=== PATIENT | female | born 2000 ===

== ENCOUNTER 2019-01-06 05:47 | Emergency (ER) | payer OTHER ==
[2019-01-06] MEDS ORDERED: Ondansetron INJ* 2 MG/ML VIAL IV ONE (05:58)
[2019-01-06] MEDS ORDERED: Morphine 4 MG/ML VIAL (1 ml) 4 MG/ML VIAL IV ONE (05:58)
[2019-01-06] MEDS ORDERED: Ketorolac INJ* 30 MG/ML 1 ML VIAL IV PUSH ONE (06:01)
[2019-01-06] MEDS ORDERED: NS 0.9% 1000 ML** 2,000 ML IV ONE (06:05)
--- NOTE | 2019-01-06 06:06 | ED ---
GI/ HPI - HPI Summary HPI Summary: 18-year-old female presents with flank pain today. She states went to [facility] yesterday and was diagnosed with a stone on the right side that was 4 mm. Unsure of the location of the stone. She states that they sent her with pain medication and antibiotics and tool last dose of medication at 11pm last night. They also diagnosis her with a uti. Told to follow up today. She states that she fell asleep and then woke up nauseated and in extreme pain. She did not take anymore medication. She denies any fevers. She states she is currently nauseous. Denies any chest or shortness breath. Denies any diarrhea constipation. Has never had a kidney stone before. Has no medical conditions. CT shows 4mm stone distal ureter via reports from [facility]. - History of Current Complaint Chief Complaint: EDAbdPain Time Seen by Provider: 01/06/19 05:52 Stated Complaint: ABD PAIN PER EMS Pain Intensity: 10 - Allergy/Home Medications Allergies/Adverse Reactions: Allergies Allergy/AdvReac Type Severity Reaction Status Date / Time No Known Allergies Allergy Verified 01/06/19 05:57 Home Medications: Home Medications Pyridium 1 tab PO DAILY 01/06/19 [History Confirmed 01/06/19] PMH/Surg Hx/FS Hx/Imm Hx Endocrine/Hematology History: Denies: Hx Anticoagulant Therapy Respiratory History: Denies: Hx Asthma Infectious Disease History: No Infectious Disease History: Denies: Traveled Outside the [place] in Last 30 Days - Family History Known Family History: Positive: Non-Contributory - Social History Substance Use Type: Reports: None Review of Systems Negative: Fever Negative: Chest Pain Negative: Shortness Of Breath Positive: Abdominal Pain, Vomiting, Nausea. Negative: Diarrhea Positive: dysuria, flank pain All Other Systems Reviewed And Are Negative: Yes Physical Exam Triage Information Reviewed: Yes Vital Signs On Initial Exam: Initial Vitals Temp Pulse Resp BP Pulse Ox 98.0 F 80 18 152/77 98 01/06/19 05:52 01/06/19 05:52 01/06/19 05:52 01/06/19 05:52 01/06/19 05:52 Vital Signs Reviewed: Yes Appearance: Positive: Pain Distress Skin: Positive: Warm, Dry Head/Face: Positive: Normal Head/Face Inspection Eyes: Positive: Normal, Conjunctiva Clear ENT: Positive: Pharynx normal Respiratory/Lung Sounds: Positive: Clear to Auscultation, Breath Sounds Present Cardiovascular: Positive: Normal, RRR Abdomen Description: Positive: CVA Tenderness (R), Other: - tenderness right side of abd Bowel Sounds: Positive: Present Musculoskeletal: Positive: Normal Neurological: Positive: Normal Psychiatric: Positive: Normal Diagnostics - Vital Signs Vital Signs Temp Pulse Resp BP Pulse Ox 01/06/19 05:52 98.0 F 80 18 152/77 98 - Laboratory Result Diagrams: 01/06/19 06:41 01/06/19 06:41 Lab Statement: Any lab studies that have been ordered have been reviewed, and results considered in the medical decision making process. Re-Evaluation - Re-Evaluation First Eval Re-Evaluation Time: 06:57 Change: Improved Comment: pain improved Second Eval Re-Evaluation Time: 08:40 Comment: pain resolved, feels comfortable going home GIGU Course/Dx - Course Course Of Treatment: 18-year-old female presents with flank pain today. She states went to [facility] yesterday and was diagnosed with a stone on the right side that was 4 mm. Unsure of the location of the stone. She states that they sent her with pain medication and antibiotics and tool last dose of medication at 11pm last night. They also diagnosis her with a uti. Told to follow up today. She states that she fell asleep and then woke up nauseated and in extreme pain. She did not take anymore medication. She denies any fevers. She states she is currently nauseous. Denies any chest or shortness breath. Denies any diarrhea constipation. Has never had a kidney stone before. Has no medical conditions. On exam tenderness right flank. Patient appears uncomfortable. gave pain medication and patient feels better. wbc normal. potassium is low at 3.3 so gave supplement. urine shows potential uti will treat with bactrim. will have pt follow up with urology. patient states wants medication sent here. patient states that called [facility] and have no meds from [facility]. will give pain medication. patient understand and agrees with plan. - Diagnoses Differential Diagnoses - Female: Pyelonephritis, Urinary Tract Infection, Ureteral Calculi Provider Diagnoses: Ureteral stone Discharge - Sign-Out/Discharge Documenting (check all that apply): Patient Departure Patient Received Moderate/Deep Sedation with Procedure: No - Discharge Plan Condition: Good Disposition: HOME Prescriptions: Ondansetron ODT TAB* [Zofran 4 MG Odt TAB*] 4 mg PO Q6H PRN #20 tab.odt PRN Reason: Nausea oxyCODONE/Acetamin 5/325 MG* [Percocet 5/325 TAB*] 1 tab PO Q6H PRN #20 tab MDD 4 PRN Reason: Pain Sulfamethox/Trimethoprim DS* [Bactrim DS 800/160 TAB*] 1 tab PO BID #9 tab Tamsulosin CAP* [Flomax CAP*] 0.4 mg PO DAILY #7 cap Patient Education Materials: Ureteral Stones (ED) Referrals: No Primary Care Phys,NOPCP [Primary Care Provider] - Nigel Nevarez MD [Medical Doctor] - Additional Instructions: Take ibuprofen every 6 hours and percocet as needed every 6 hours Take Zofran up to two tablets every 6 hours for nausea as needed Take Flomax daily starting tomorrow, first dose given in ED until stone expelled , make sure stand up slowly take bactrim twice a day for 5 days Follow up with urology, call office tomorrow for appointment Strain urine until collect stone Return to ED if unable to manage pain at home, develop fever, or any new or worsening symptoms - Billing Disposition and Condition Condition: GOOD Disposition: Home
[2019-01-06 06:57] LABS: ABS Monocytes 0.8 10^3/ul (0-0.8); ABS Neutrophils 8.4 10^3/ul (1.5-7.7); Eosinophil % 0.1 %; Hematocrit 32 % (35-47); Hemoglobin 11.1 g/dL (12.0-16.0); Lymphocyte % 9.9 %; Mean Corpuscular HGB Conc 34 g/dL (31-36); Mean Corpuscular Hemoglobin 29 pg (27-31); Mean Corpuscular Volume 85 fL (80-97); Mean Platelet Volume 8.1 fL (7.4-10.4); Platelet Count 208 10^3/uL (150-450); Red Blood Count 3.81 10^6 /uL (3.70-4.87); Red Cell Distribution Width 13 % (10-15); White Blood Count 10.2 10^3/uL (3.5-10.8)
[2019-01-06 07:13] LABS: Albumin 3.5 g/dL (3.2-5.2); Albumin/Globulin Ratio 1.2 (1-3); BUN/Creatinine Ratio 12.5 (8-20); Calcium 8.3 mg/dL (8.6-10.3); EGFR African American 82.6 (>60); EGFR Non-African American 68.3 (>60); Globulin 2.9 g/dL (2-4); Potassium 3.3 mmol/L (3.5-5.0); Total Bilirubin 0.6 mg/dL (0.2-1.0); Total Protein 6.4 g/dL (6.4-8.9)
[2019-01-06] MEDS ORDERED: Potassium Chlor TAB* 20 MEQ TAB.ER PO ONE (08:03)
[2019-01-06 08:19] LABS: Urine Appearance Clear; Urine Bacteria Absent (Absent); Urine Bilirubin Negative (Negative); Urine Blood 1+ (Negative); Urine Color Amber; Urine Glucose Negative (Negative); Urine Ketones 1+ (Negative); Urine Nitrite Positive (Negative); Urine Protein Negative (Negative); Urine Red Blood Cell Trace(0-2/hpf) (Absent); Urine Specific Gravity 1.006 (1.010-1.030); Urine Squamous Epithelial Cell Present (Absent); Urine Urobilinogen Negative (Negative); Urine White Blood Cell Trace(0-5/hpf) (Absent)
[2019-01-06] MEDS ORDERED: Tamsulosin CAP* 0.4 MG PO ONE (08:28)
[2019-01-06] MEDS ORDERED: Sulfamethox/Trimethoprim DS 800/160* TAB PO ONE (08:40)
[2019-01-06 09:09] VITALS: BP 117/64
== END 2019-01-06 09:08 | disposition home or self-care (01) ==
LOC: ED 05:47
DX: N20.1 Calculus of ureter (principal)
CPT/HCPCS: 36415; 80053; 81003; 81015; 83605; 85025; 87086; 96361; 96374; 96375; 99283; A9270-GY; J1885; J2270; J2405